=== PATIENT | male | born 1965 | race Caucasian/White ===

== ENCOUNTER 2016-08-08 16:53 | Emergency (ER) | payer BC ==
[~2016-08-08] VITALS: Wt 99.8 kg
[~2016-08-08 16:53] MED LIST: ALBUTEROL0.09 MG/A2 IH; LEVOFLOXACIN500 MG PO; LOMOTIL 0.025 M1 TA1 PO
[2016-08-08] MEDS ORDERED: PREDNISONE10 MG PO (18:39)
[2016-08-08] MEDS ORDERED: PROAIR HFA8.5 GM INH (18:39)
== END 2016-08-08 18:44 | disposition home or self-care (01) ==
LOC: ED 16:53
DX: J20.9 Acute bronchitis, unspecified (principal)

== ENCOUNTER → 2018-07-05 | Outpatient (CLI) | payer BC ==
[~2018-07-05] MED LIST changes: +PREDNISONE10 MG PO; +PROAIR HFA8.5 GM INH
== END | disposition home or self-care (01) ==
LOC: RAD 17:05
DX: R05 Cough (principal); R09.89 Other specified symptoms and signs involving the circulatory and respiratory systems; J45.40 Moderate persistent asthma, uncomplicated; F17.210 Nicotine dependence, cigarettes, uncomplicated

== ENCOUNTER 2018-07-22 22:57 | Inpatient (IN) | payer BC ==
[~2018-07-22] VITALS: Ht 177.8 cm; Wt 105.9 kg
--- NOTE | ~2018-07-22 | EKG ---
[place], [place] ELECTROCARDIOGRAM REPORT NAME: LINDA GOULD UNIT #: [id number] ROOM: 401 DOCTOR: SHORTY DRAFT REPORT BIRTHDATE: [birth year] [facility] Test Date: 2018-07-22 Test Time: 23:42:22 Pat Name: LINDA GOULD Department: Room: 401 Gender: M Machine Design Engineer: Leidy Westbrook : 1965 Requested By: KAELA HERNANDEZ Order Number: [id number] Reading MD: Ángel Aguilar MD Measurements Intervals [place] Rate: 81 P: 50 GA: 225 QRS: 22 QRSD: 95 T: 43 QT: 393 QTc: 457 Interpretive Statements Sinus rhythm Prolonged GA interval ST elev, probable normal early repol pattern Electronically Signed On 07-27-2018 9:40:12 PDT by Ángel Aguilar MD CM:EKGRPT:ELECTROCARDIOGRAM REPORT [id number] KAELA ORO DRAFT REPORT KAELA HOWELL
[2018-07-22 23:03] VITALS: BP 103/66
--- NOTE | 2018-07-22 23:18 | NUR ---
PATIENT REFUSES APPLICATION OF AGRICULTURAL SPECIALIST
--- NOTE | 2018-07-22 23:25 | NUR ---
PATIENT REFUSES APPLICATION OF CERVICAL COLLAR
--- NOTE | 2018-07-22 23:54 | NUR ---
PATIENT TO CT.
[2018-07-23 00:01] LABS: ACT PARTIAL THROMBO TIME 19.9 SECONDS (20.8-31.5); INTERNATIONAL NORM RATIO 0.9 (2.0-3.5)
[2018-07-23 00:10] LABS: BASO % 0.7 % (0.0-1.0); EOS # 0.2 10*3/uL (0.0-0.4); EOS % 3.2 % (1.0-4.0); HEMATOCRIT 44.5 % (42.0-52.0); HEMOGLOBIN 14.5 g/dl (14.0-18.0); LYMPH # 1.7 10*3/uL (1.3-4.4); LYMPH % 30.6 % (27.0-41.0); MEAN CELL VOLUME 92.3 fl (80.0-94.0); MEAN CORPUSCULAR HGB 30.1 pg (27.0-31.0); MEAN CORPUSCULAR HGB CONC 32.6 g/dl (33.0-37.0); MONO # 0.5 10*3/uL (0.1-1.0); NEUT # 3.2 10*3/uL (2.3-7.9); NEUT % 57.1 % (47.0-73.0); PLATELET COUNT AUTOMATED 231 10*3/uL (130-400); RED BLOOD COUNT 4.82 10*6/uL (4.50-5.90); RED CELL DISTRI WIDTH 12.9 % (0-14.5); WHITE BLOOD COUNT 5.7 10*3/uL (4.8-10.8)
[2018-07-23 00:14] LABS: ALBUMIN 3.9 gm/dl (3.1-4.5); ALKALINE PHOSPHATASE 62 U/L (45-117); BUN 12 mg/dl (7-24); CHLORIDE 107 mmol/L (98-107); CREATININE 0.93 mg/dL (0.70-1.30); LIPASE 229 U/L (73-393); POTASSIUM 3.8 mmol/L (3.5-5.1); SGOT/AST 46 IU/L (3-35); SGPT/ALT 88 U/L (12-78); SODIUM 138 mmol/L (136-145); TOTAL PROTEIN 7.5 gm/dL (6.4-8.2)
[2018-07-23 00:15] LABS: TROPONIN I < 0.015 ng/ml (<0.045)
[2018-07-23 00:28] LABS: ACETAMINOPHEN (TYLENOL) < 5.0 ug/ml (10-30)
[2018-07-23 01:42] VITALS: BP 110/68
[2018-07-23 02:00] VITALS: BP 104/63
--- NOTE | 2018-07-23 02:00 | NUR ---
A 53, admitted to , under the services of ANGELA Brown DO with a diagnosis of ALCOHOL POISONING. Chief complaint is ALCOHOL INTOXICATION. Patient arrived via ambulance from ER. Monitor applied. Initial assessment completed. Vital signs taken and recorded. ANGELA BROWN DO notified of admission to the unit. Orders received. See assessment for past medical history, medications and allergies. Patient and/or family oriented to unit. [facility]. Clothing/patient valuable form completed. BEAU CHILEL
[2018-07-23 02:54] LABS: URINE AMPHETAMINES < 1000 (1000ng/ml); URINE BARBITURATES < 200 (200ng/ml); URINE BENZODIAZEPINES < 200 (200ng/ml); URINE CANNABINOIDS (THC) < 50 (50ng/ml); URINE COCAINE < 300 (300ng/ml); URINE METHADONE < 300 (300ng/ml); URINE OPIATES < 300 (300ng/ml)
[2018-07-23 03:00] LABS: URINE PHENCYCLIDINE < 25 (25ng/ml)
--- NOTE | 2018-07-23 04:08 | NUR ---
PT RESTING QUIETLY IN BED AT THIS TIME.
--- NOTE | 2018-07-23 08:40 | NUR ---
The patient, LINDA GOULD, 53, , [id number], [id number], presented to Emergency Department at 2314. The patient's Chief Complaint was . The patient subsequently left "Against Medical Advice" at . Treatment completed included . Possible complications and consequences of not following medical advice were clearly explained to the patient by , and RN. THIS WAS DOCUMENTED IN ERROR THIS IS AN ERROR. PATIENT DID NOT LEAVE AMA Assessment of the patient's competence, for making the decision to refuse completion of previously requested exam and treatment, includes . Attempts made to get involved in persuading the patient to accept, , the physician's, recommendations. Discussion included . The patient's response was . Family/friends who witnessed the discussion includes . Signatures requested. The patient sign the chart; this was witnessed by RN. The patient's reason for departing, prior to completion of treatment was . The patients disposition is , to the care of other. Arrangements have been made for the ED staff to "Call Back" the patient the following day, to inquire about the patient's medical status and encourage LINDA GOULD, to seek medical attention, if this has not been completed. HELENA MENENDEZ.
--- NOTE | 2018-07-23 08:53 | NUR ---
Discharge instructions reviewed with patient/family. Patient receptive and verbalizes understanding. Follow-up care arranged. Written instructions given to patient/family. Patient ambulated from unit with all personal belongings accounted for and with his spouse. HELENA MENENDEZ
== END 2018-07-23 08:53 | disposition home or self-care (01) | DRG 917 ==
LOC: ED 22:57 → EDHOLD 07-23 00:43 → 4E 07-23 00:54
PROVIDERS: Physician Assistant; ADMIT Internal Medicine
DX: T51.91XA Toxic effect of unspecified alcohol, accidental (unintentional), initial encounter (principal); G93.41 Metabolic encephalopathy; K57.80 Diverticulitis of intestine, part unspecified, with perforation and abscess without bleeding; F10.129 Alcohol abuse with intoxication, unspecified; R73.9 Hyperglycemia, unspecified; R74.0 Nonspecific elevation of levels of transaminase and lactic acid dehydrogenase [LDH]; J44.9 Chronic obstructive pulmonary disease, unspecified; Z71.6 Tobacco abuse counseling; Z91.81 History of falling; Z82.3 Family history of stroke; Z80.3 Family history of malignant neoplasm of breast; Z87.891 Personal history of nicotine dependence; Z79.899 Other long term (current) drug therapy; Z82.49 Family history of ischemic heart disease and other diseases of the circulatory system; Y92.89 Other specified places as the place of occurrence of the external cause

== ENCOUNTER → 2018-11-08 | Outpatient (CLI) | payer BC ==
--- NOTE | ~2018-11-08 | PF ---
[place], [place] PULMONARY FUNCTION TEST [id number] UN[facility] #: [id number] ROOM: DOCTOR: TAVO MCLEOD MD,MIGEL BIRTHDATE: [birth year] DOS: 11/08/2018 PULMONARY FUNCTION TEST ORDERED BY: The test was ordered by Kylie Escobedo. HISTORY: The patient recorded as 53-year-old male, height of 69 inches, weight of 230 pounds, BMI of 34. The patient's study was done for assessment of symptoms of productive cough, shortness of breath with exertion and frequent wheezing. Tobacco use reported 30 pack history of tobacco use as 1 pack of cigarettes per day. Tobacco cessation reported as 7 years ago. SPIROMETRY: The patient's FVC of 3.51 liters at 74% predicted value, FEV1 2.60 liters, 69% predicted value with partial improvement noted post-bronchodilator, but did not meet the ATS criteria of significant improvement postbronchodilator study. Flow volume loop was suggestive of mild obstructive airway pattern. The ratio of FEV1/FVC recorded 74%. The lung volume, thoracic gas volume recorded at 88%, residual volume 137%, total lung capacity 94%. RV/TLC ratio 145%. The patient's lung diffusion recorded 88%. The patient's airway resistance and passive conductance was normal. FINAL IMPRESSION: Evidence of mild obstructive lung disease cannot be completely excluded, which are noted as nonspecific possibly bronchial asthma could be considered. Clinical correlation would be advised. MIGEL VO MD CM:PFREPORT:PULMONARY FUNCTION TEST [id number] MIGEL MCLEOD MD
== END | disposition home or self-care (01) ==
LOC: CP 06:57
DX: J45.40 Moderate persistent asthma, uncomplicated (principal); F17.200 Nicotine dependence, unspecified, uncomplicated

== ENCOUNTER → 2019-03-27 | Day surgery (SDC) | payer BC ==
[~2019-03-27] VITALS: Ht 177.8 cm; Wt 104.3 kg
[~2019-03-27] MED LIST changes: +MONTELUKAST SOD10 MG PO; +SYMB160 INH
--- NOTE | ~2019-03-27 | O ---
[place], [place] OPERATIVE NOTE NAME: LINDA GOULD UNIT #: [id number] ROOM: DOCTOR: GRANT LEWIS MD BIRTHDATE: [birth year] DOS: 03/27/2019 INDICATIONS: A 53-year-old patient who has presented status post colostomy reversal, history of diverticulitis. ALLERGIES: No known medication. FAMILY HISTORY: Noncontributory. PAST SURGICAL HISTORY: Colostomy reversal. PAST MEDICAL HISTORY: COPD. SOCIAL HISTORY: Social alcohol consumer, stopped smoking 30 years ago. PROCEDURE: Today's procedure part of investigation is colonoscopy plus polypectomies. PREMEDICATION: Propofol. SCOPE: Olympus forward-viewing colonoscope 10L video. REPORT: After putting the patient in left lateral position and application of lubricant to the scope, scope was introduced. After direct visualization, advanced through the length of colon without difficulty. Anastomotic site at sigmoid colon about was noticed, photographed. Rare diverticulosis seen. Three polypoid lesion in the ascending colon noticed. Piecemeal polypectomy on sessile polyps were done. Base of the cecum explored. Appendiceal site identified, ileocecal valve was defined. No other acute pathology seen. The patient extubated, tolerated the procedure well. IMPRESSION: Status post colostomy reversal, colonoscopy in 3 sessile polypoid lesion, left colon, status post piecemeal polypectomies. PLAN: High fiber fruit diet. ACTIVITY: Ad celestino. FOLLOWUP: Routinely with you in office, p.r.n. visit with us in GI Clinic in 2 weeks. I thank you very much indeed for your kind referral. Photographic series have been attached to chart for future reference. [place], [place] OPERATIVE NOTE NAME: LINDA GOULD UNIT #: [id number] ROOM: DOCTOR: GRANT LEWIS MD BIRTHDATE: [birth year] GRANT LEWIS MD CM:OPRECORD:OPERATIVE NOTE 1015 [id number] GRANT LEWIS MD 03/27/19 1146 interface
[2019-03-27 09:17] VITALS: BP 131/80
[2019-03-27 10:10] VITALS: BP 93/59
[2019-03-27 10:25] VITALS: BP 124/80
[2019-03-27 10:40] VITALS: BP 114/81
== END | disposition home or self-care (01) ==
LOC: SDC 03-25 12:30
DX: Z12.11 Encounter for screening for malignant neoplasm of colon (principal); D12.2 Benign neoplasm of ascending colon; J44.9 Chronic obstructive pulmonary disease, unspecified; K57.30 Diverticulosis of large intestine without perforation or abscess without bleeding; E66.01 Morbid (severe) obesity due to excess calories; Z68.33 Body mass index [BMI] 33.0-33.9, adult; Z98.890 Other specified postprocedural states; Z79.899 Other long term (current) drug therapy; Z87.891 Personal history of nicotine dependence; Z80.8 Family history of malignant neoplasm of other organs or systems; Z82.49 Family history of ischemic heart disease and other diseases of the circulatory system

== ENCOUNTER → 2020-04-04 | Outpatient (CLI) | payer BC | END | disposition home or self-care (01) | LOC: COVID19 14:17 | PROVIDERS: ATTEND Internal Medicine | DX: U07.1 COVID-19 (principal) ==

== ENCOUNTER → 2021-11-09 | Outpatient (CLI) | payer BC | END | disposition home or self-care (01) | LOC: LAB 11:31 | PROVIDERS: ATTEND Family Medicine | DX: E11.9 Type 2 diabetes mellitus without complications (principal) ==

== ENCOUNTER 2022-02-26 23:52 | Inpatient (IN) | payer BC ==
[~2022-02-26] VITALS: Ht 175.2 cm; Wt 98.7 kg
[2022-02-26 23:59] VITALS: BP 111/68
[2022-02-27] VITALS (8 sets, daily range): BP systolic 92–148; BP diastolic 57–81
[2022-02-27 01:35] LABS: BASO % 0.2 % (0.0-1.0); EOS % 0.2 % (1.0-4.0); HEMATOCRIT 45.1 % (42.0-52.0); LYMPH # 1.3 10*3/uL (1.3-4.4); LYMPH % 8.1 % (27.0-41.0); MEAN CELL VOLUME 91.9 fl (80.0-94.0); MEAN CORPUSCULAR HGB 30.5 pg (27.0-31.0); MEAN CORPUSCULAR HGB CONC 33.3 g/dl (33.0-37.0); MEAN PLATELET VOLUME 10.6 fl (9.6-12.3); MONO # 0.7 10*3/uL (0.1-1.0); MONO % 4.7 % (3.0-9.0); NEUT # 13.5 10*3/uL (2.3-7.9); NEUT % 86.4 % (47.0-73.0); PLATELET COUNT AUTOMATED 268 10*3/uL (130-400); RED BLOOD COUNT 4.91 10*6/uL (4.50-5.90); RED CELL DISTRI WIDTH 12.5 % (0-14.5); WHITE BLOOD COUNT 15.6 10*3/uL (4.8-10.8)
[2022-02-27 01:52] LABS: ALKALINE PHOSPHATASE 59 U/L (45-117); BUN 14 mg/dl (7-24); CHLORIDE 105 mmol/L (98-107); CREATININE 1.06 mg/dL (0.70-1.30); POTASSIUM 4.2 mmol/L (3.5-5.1); SGOT/AST 26 IU/L (3-35); SGPT/ALT 33 U/L (12-78); SODIUM 137 mmol/L (136-145); TOTAL PROTEIN 7.7 gm/dL (6.4-8.2)
[2022-02-27] MEDS ORDERED: METFORMIN HYDR500 MG PO (11:06)
[2022-02-27] MEDS ORDERED: SINGULAIR10 M1 PO ×2 (11:06→11:09)
[2022-02-27] MEDS ORDERED: ADV 100/50 INH (11:08)
[2022-02-27] MEDS ORDERED: LOSARTAN POTASS25 M1 PO (11:08)
[2022-02-27] MEDS ORDERED: NORVASC5 MG PO (11:09)
[2022-02-28] VITALS: BP 127/69
[2022-02-28 06:47] LABS: BASO % 0.4 % (0.0-1.0); EOS # 0.1 10*3/uL (0.0-0.4); EOS % 1.9 % (1.0-4.0); HEMATOCRIT 40.7 % (42.0-52.0); LYMPH # 1.2 10*3/uL (1.3-4.4); LYMPH % 17.9 % (27.0-41.0); MEAN CELL VOLUME 91.1 fl (80.0-94.0); MEAN CORPUSCULAR HGB 30.2 pg (27.0-31.0); MEAN CORPUSCULAR HGB CONC 33.2 g/dl (33.0-37.0); MEAN PLATELET VOLUME 11.3 fl (9.6-12.3); MONO # 0.8 10*3/uL (0.1-1.0); MONO % 12.4 % (3.0-9.0); NEUT # 4.5 10*3/uL (2.3-7.9); NEUT % 67.3 % (47.0-73.0); PLATELET COUNT AUTOMATED 226 10*3/uL (130-400); RED BLOOD COUNT 4.47 10*6/uL (4.50-5.90); RED CELL DISTRI WIDTH 12.9 % (0-14.5); WHITE BLOOD COUNT 6.8 10*3/uL (4.8-10.8)
[2022-02-28 06:50] LABS: ALKALINE PHOSPHATASE 51 U/L (45-117); BUN 15 mg/dl (7-24); CHLORIDE 108 mmol/L (98-107); CHOLESTEROL 186 mg/dL (<200); CREATININE 0.82 mg/dL (0.70-1.30); LDL CHOLESTEROL 111 mg/dL (9-159); SGOT/AST 24 IU/L (3-35); SGPT/ALT 27 U/L (12-78); SODIUM 140 mmol/L (136-145); TOTAL PROTEIN 6.7 gm/dL (6.4-8.2); TRIGLYCERIDES 96 mg/dl (<150)
[2022-02-28 06:51] LABS: FREE T4 0.85 ng/dl (0.76-1.46)
[2022-02-28 06:53] LABS: ACT PARTIAL THROMBO TIME 26.5 SECONDS (20.0-32.1)
[2022-02-28 08:00] VITALS: BP 139/73
[2022-02-28 12:00] VITALS: BP 132/70
[2022-02-28] MEDS ORDERED: HYDROCODONE-AC1 EAC1 PO (13:50)
== END 2022-02-28 15:30 | disposition home or self-care (01) | DRG 494 ==
LOC: ED 23:52 → EDHOLD 02-27 05:30 → 4E 02-27 05:30 → EDHOLD 02-27 06:42 → 4E 02-27 06:56
PROVIDERS: Emergency Medicine; Internal Medicine; ADMIT Emergency Medicine; ATTEND Emergency Medicine
PROC: 0QSJ0ZZ Reposition Right Fibula, Open Approach (ICD-10-PCS; principal; 2022-02-27)
PROC: 2W3LX1Z Immobilization of Right Lower Extremity using Splint (ICD-10-PCS; 2022-02-27)
DX: S82.401A Unspecified fracture of shaft of right fibula, initial encounter for closed fracture (principal); S93.431A Sprain of tibiofibular ligament of right ankle, initial encounter; F10.929 Alcohol use, unspecified with intoxication, unspecified; I10 Essential (primary) hypertension; E11.65 Type 2 diabetes mellitus with hyperglycemia; D72.829 Elevated white blood cell count, unspecified; S93.421A Sprain of deltoid ligament of right ankle, initial encounter; J44.9 Chronic obstructive pulmonary disease, unspecified; Z93.3 Colostomy status; Z82.3 Family history of stroke; Z80.3 Family history of malignant neoplasm of breast; W18.39XA Other fall on same level, initial encounter; Y93.89 Activity, other specified; Y92.89 Other specified places as the place of occurrence of the external cause; Y99.8 Other external cause status

== ENCOUNTER → 2022-03-08 | Day surgery (SDC) | payer BC ==
[2022-03-03 12:39] VITALS: BP 134/85
[2022-03-03 13:48] LABS: BUN 16 mg/dl (7-24); CHLORIDE 108 mmol/L (98-107); CREATININE 0.83 mg/dL (0.70-1.30); POTASSIUM 4.1 mmol/L (3.5-5.1); SODIUM 140 mmol/L (136-145)
[~2022-03-08] VITALS: Ht 175.2 cm; Wt 97.5 kg
[~2022-03-08] MED LIST changes: +ADV 100/50 INH; +HYDROCODONE-AC1 EAC1 PO; +LOSARTAN POTASS25 M1 PO; +METFORMIN HYDR500 MG PO; +NORVASC5 MG PO; +SINGULAIR10 M1 PO
[2022-03-08 06:46] VITALS: BP 134/82
[2022-03-08 09:30] VITALS: BP 129/71
[2022-03-08 09:45] VITALS: BP 134/81
[2022-03-08 10:00] VITALS: BP 122/74
[2022-03-08 10:15] VITALS: BP 143/88
[2022-03-08 10:30] VITALS: BP 142/85
== END | disposition home or self-care (01) ==
LOC: SDC 03-03 12:30
PROVIDERS: ATTEND Orthopaedic Surgery
DX: S82.831A Other fracture of upper and lower end of right fibula, initial encounter for closed fracture (principal); S93.432A Sprain of tibiofibular ligament of left ankle, initial encounter; I10 Essential (primary) hypertension; E11.9 Type 2 diabetes mellitus without complications; J43.9 Emphysema, unspecified; W01.0XXA Fall on same level from slipping, tripping and stumbling without subsequent striking against object, initial encounter; Y93.89 Activity, other specified; Y92.89 Other specified places as the place of occurrence of the external cause; Y99.8 Other external cause status

== ENCOUNTER → 2022-03-18 | Outpatient (CLI) | payer BC | LOC: ORTHO 01:05 | PROVIDERS: ATTEND Orthopaedic Surgery | DX: S82.451D Displaced comminuted fracture of shaft of right fibula, subsequent encounter for closed fracture with routine healing (principal); M79.89 Other specified soft tissue disorders; X58.XXXD Exposure to other specified factors, subsequent encounter ==

== ENCOUNTER → 2022-04-18 | Outpatient (CLI) | payer BC | END | disposition home or self-care (01) | LOC: ORTHO 01:54 | PROVIDERS: ATTEND Orthopaedic Surgery | DX: S82.451D Displaced comminuted fracture of shaft of right fibula, subsequent encounter for closed fracture with routine healing (principal); X58.XXXD Exposure to other specified factors, subsequent encounter ==

== ENCOUNTER → 2022-05-30 | Outpatient (CLI) | payer BC | END | disposition home or self-care (01) | LOC: ORTHO 01:34 | PROVIDERS: ATTEND Orthopaedic Surgery | DX: S82.451D Displaced comminuted fracture of shaft of right fibula, subsequent encounter for closed fracture with routine healing (principal); X58.XXXD Exposure to other specified factors, subsequent encounter ==

== ENCOUNTER → 2022-08-29 | Outpatient (CLI) | payer BC | END | disposition home or self-care (01) | LOC: ORTHO 01:34 | PROVIDERS: ATTEND Orthopaedic Surgery | DX: S82.451D Displaced comminuted fracture of shaft of right fibula, subsequent encounter for closed fracture with routine healing (principal); X58.XXXD Exposure to other specified factors, subsequent encounter ==

== ENCOUNTER → 2022-10-13 | Outpatient (CLI) | payer BC ==
[2022-10-13 10:08] LABS: BASO # 0.1 10*3/uL (0.0-0.1); BASO % 1.1 % (0.0-1.0); EOS # 0.1 10*3/uL (0.0-0.4); EOS % 2.9 % (1.0-4.0); HEMATOCRIT 45.3 % (42.0-52.0); MEAN CELL VOLUME 89.3 fl (80.0-94.0); MEAN CORPUSCULAR HGB 29.4 pg (27.0-31.0); MEAN CORPUSCULAR HGB CONC 32.9 g/dl (33.0-37.0); MEAN PLATELET VOLUME 10.7 fl (9.6-12.3); MONO # 0.4 10*3/uL (0.1-1.0); MONO % 8.2 % (3.0-9.0); NEUT # 2.9 10*3/uL (2.3-7.9); NEUT % 65.3 % (47.0-73.0); PLATELET COUNT AUTOMATED 266 10*3/uL (130-400); RED BLOOD COUNT 5.07 10*6/uL (4.50-5.90); RED CELL DISTRI WIDTH 13.2 % (0-14.5); WHITE BLOOD COUNT 4.4 10*3/uL (4.8-10.8)
[2022-10-13 10:29] LABS: ALKALINE PHOSPHATASE 75 U/L (46-116); BUN 12 mg/dl (9-23); CHLORIDE 104 mmol/L (98-107); CHOLESTEROL 220 mg/dL (<200); GAMMA GLUTAMYL TRANSPEPTIDASE 26 U/L (0-73); LDL CHOLESTEROL 138 mg/dL (9-159); POTASSIUM 3.9 mmol/L (3.4-5.1); SGPT/ALT 25 U/L (10-49); T3 UPTAKE 24.7 % (22.4-36.7); THYROID STIM HORMONE (HS) 3.868 uIU/ml (0.550-4.780); TOTAL PROTEIN 7.5 gm/dL (6.0-8.0); TRIGLYCERIDES 139 mg/dl (<150)
[2022-10-13 10:46] LABS: VITAMIN D, 25-HYDROXY 32.3 ng/mL (30-100)
== END | disposition home or self-care (01) ==
LOC: LAB 09:20
PROVIDERS: ATTEND Family Medicine
DX: E78.5 Hyperlipidemia, unspecified (principal); E55.9 Vitamin D deficiency, unspecified; R79.89 Other specified abnormal findings of blood chemistry; R53.83 Other fatigue; R74.8 Abnormal levels of other serum enzymes

== ENCOUNTER → 2023-06-20 | Outpatient (CLI) | payer BC ==
[2023-06-20 15:51] LABS: BASO % 0.6 % (0.0-1.0); BILIRUBIN Negative (Negative); BLOOD Negative (Negative); CLARITY Clear (Clear); COLOR Yellow (Yellow); EOS # 0.1 10*3/uL (0.0-0.4); EOS % 2.1 % (1.0-4.0); GLUCOSE Negative (Negative); HEMATOCRIT 42.5 % (42.0-52.0); KETONE Trace (Negative); LEUKO ESTERASE Negative (Negative); LYMPH # 1.6 10*3/uL (1.3-4.4); LYMPH % 30.5 % (27.0-41.0); MEAN CELL VOLUME 90.4 fl (80.0-94.0); MEAN CORPUSCULAR HGB 28.9 pg (27.0-31.0); MEAN PLATELET VOLUME 10.8 fl (9.6-12.3); MONO # 0.4 10*3/uL (0.1-1.0); MONO % 8.4 % (3.0-9.0); NEUT # 3.1 10*3/uL (2.3-7.9); NEUT % 58.2 % (47.0-73.0); NITRITE Negative (Negative); PH 5.5 (4.5-8.0); PLATELET COUNT AUTOMATED 247 10*3/uL (130-400); RED CELL DISTRI WIDTH 12.8 % (0-14.5); RETICULOCYTE % 1.35 % (0.50-2.50); SPECIFIC GRAVITY >= 1.030 (1.001-1.030); WHITE BLOOD COUNT 5.3 10*3/uL (4.8-10.8)
[2023-06-20 16:01] LABS: FINE GRANULAR CAST 0-2; MUCOUS 2+; RBC 0-2 rbc/hpf (0-2); WBC 0-2 wbc/hpf (0-5)
[2023-06-20 16:22] LABS: ALKALINE PHOSPHATASE 62 U/L (46-116); BUN 11 mg/dl (9-23); CHLORIDE 107 mmol/L (98-107); CHOLESTEROL 145 mg/dL (<200); GAMMA GLUTAMYL TRANSPEPTIDASE 21 U/L (0-73); LDL CHOLESTEROL 78 mg/dL (9-159); POTASSIUM 4.1 mmol/L (3.4-5.1); SGPT/ALT 23 U/L (5-49); THYROXINE (T4) TOTAL 6.3 ug/dl (4.5-10.9); TOTAL PROTEIN 7.3 gm/dL (6.0-8.0); TRIGLYCERIDES 66 mg/dl (<150)
[2023-06-20 16:23] LABS: VITAMIN D, 25-HYDROXY 40.4 ng/mL (30-100)
== END | disposition home or self-care (01) ==
LOC: LAB 15:29
PROVIDERS: ATTEND Family Medicine
DX: E55.9 Vitamin D deficiency, unspecified (principal); R79.89 Other specified abnormal findings of blood chemistry; R53.83 Other fatigue; E78.5 Hyperlipidemia, unspecified; R74.8 Abnormal levels of other serum enzymes; E11.9 Type 2 diabetes mellitus without complications

== ENCOUNTER → 2023-09-18 | Outpatient (CLI) | payer BC ==
[2023-09-18 16:17] LABS: BASO % 0.5 % (0.0-1.0); EOS # 0.2 10*3/uL (0.0-0.4); EOS % 3.4 % (1.0-4.0); HEMATOCRIT 41.9 % (42.0-52.0); LYMPH # 1.7 10*3/uL (1.3-4.4); LYMPH % 30.3 % (27.0-41.0); MEAN CELL VOLUME 91.7 fl (80.0-94.0); MEAN CORPUSCULAR HGB 30.2 pg (27.0-31.0); MEAN CORPUSCULAR HGB CONC 32.9 g/dl (33.0-37.0); MEAN PLATELET VOLUME 10.7 fl (9.6-12.3); MONO # 0.5 10*3/uL (0.1-1.0); MONO % 8.2 % (3.0-9.0); NEUT # 3.2 10*3/uL (2.3-7.9); NEUT % 57.4 % (47.0-73.0); PLATELET COUNT AUTOMATED 253 10*3/uL (130-400); RED BLOOD COUNT 4.57 10*6/uL (4.50-5.90); RED CELL DISTRI WIDTH 12.7 % (0-14.5); RETICULOCYTE % 1.35 % (0.50-2.50); WHITE BLOOD COUNT 5.5 10*3/uL (4.8-10.8)
[2023-09-18 16:18] LABS: BILIRUBIN Negative (Negative); BLOOD Negative (Negative); CLARITY Clear (Clear); COLOR Yellow (Yellow); GLUCOSE Negative (Negative); KETONE Negative (Negative); LEUKO ESTERASE Negative (Negative); NITRITE Negative (Negative); PH 5.5 (4.5-8.0); SPECIFIC GRAVITY <= 1.005 (1.001-1.030); UROBILINOGEN 0.2 E.U./dl (0.0-1.0)
[2023-09-18 16:34] LABS: EPITHELIAL CELLS 0-2; WBC 0-2 wbc/hpf (0-5)
[2023-09-18 16:52] LABS: ALKALINE PHOSPHATASE 68 U/L (46-116); BUN 9 mg/dl (9-23); CHLORIDE 103 mmol/L (98-107); CHOLESTEROL 154 mg/dL (<200); GAMMA GLUTAMYL TRANSPEPTIDASE 29 U/L (0-73); LDL CHOLESTEROL 83 mg/dL (9-159); POTASSIUM 3.7 mmol/L (3.4-5.1); SGPT/ALT 22 U/L (5-49); T3 UPTAKE 29.9 % (22.4-36.7); TOTAL PROTEIN 7.6 gm/dL (6.0-8.0); TRIGLYCERIDES 75 mg/dl (<150)
== END ==
LOC: LAB 15:18
PROVIDERS: ATTEND Family Medicine
DX: E78.5 Hyperlipidemia, unspecified (principal); R79.89 Other specified abnormal findings of blood chemistry; R53.83 Other fatigue; R74.8 Abnormal levels of other serum enzymes

== ENCOUNTER → 2024-06-10 | Outpatient (CLI) | payer BC ==
[2024-06-10 16:10] LABS: BASO % 0.6 % (0.0-1.0); EOS # 0.1 10*3/uL (0.0-0.4); EOS % 0.8 % (1.0-4.0); HEMATOCRIT 43.9 % (42.0-52.0); MEAN CORPUSCULAR HGB 29.6 pg (27.0-31.0); MEAN CORPUSCULAR HGB CONC 33.3 g/dl (33.0-37.0); MEAN PLATELET VOLUME 10.5 fl (9.6-12.3); MONO # 0.6 10*3/uL (0.1-1.0); NEUT # 4.3 10*3/uL (2.3-7.9); NEUT % 65.8 % (47.0-73.0); PLATELET COUNT AUTOMATED 288 10*3/uL (130-400); RED BLOOD COUNT 4.93 10*6/uL (4.50-5.90); RED CELL DISTRI WIDTH 12.5 % (0-14.5); RETICULOCYTE % 1.33 % (0.50-2.50); WHITE BLOOD COUNT 6.5 10*3/uL (4.8-10.8)
[2024-06-10 16:17] LABS: BILIRUBIN Negative (Negative); BLOOD Negative (Negative); CLARITY Clear (Clear); COLOR Yellow (Yellow); GLUCOSE Negative (Negative); KETONE 1+ (Negative); LEUKO ESTERASE Negative (Negative); NITRITE Negative (Negative); SPECIFIC GRAVITY >= 1.030 (1.001-1.030)
[2024-06-10 16:35] LABS: BACTERIA TRACE; MUCOUS 3+
[2024-06-10 16:48] LABS: VITAMIN D, 25-HYDROXY 35.7 ng/mL (30-100)
[2024-06-10 17:00] LABS: ALKALINE PHOSPHATASE 64 U/L (46-116); BUN 15 mg/dl (9-23); CHLORIDE 104 mmol/L (98-107); CHOLESTEROL 164 mg/dL (<200); GAMMA GLUTAMYL TRANSPEPTIDASE 29 U/L (0-73); LDL CHOLESTEROL 92 mg/dL (9-159); POTASSIUM 3.7 mmol/L (3.4-5.1); SGPT/ALT 18 U/L (5-49); TOTAL PROTEIN 7.9 gm/dL (6.0-8.0); TRIGLYCERIDES 117 mg/dl (<150)
== END | disposition home or self-care (01) ==
LOC: LAB 15:47
PROVIDERS: ATTEND Family Medicine
DX: R53.83 Other fatigue (principal); R79.89 Other specified abnormal findings of blood chemistry; E78.5 Hyperlipidemia, unspecified; R74.8 Abnormal levels of other serum enzymes; E55.9 Vitamin D deficiency, unspecified

== ENCOUNTER → 2024-12-10 | Outpatient (CLI) | payer BC ==
[2024-12-10 10:41] LABS: BASO # 0.1 10*3/uL (0.0-0.1); BASO % 0.8 % (0.0-1.0); BILIRUBIN Negative (Negative); BLOOD Negative (Negative); CLARITY Clear (Clear); COLOR Yellow (Yellow); EOS # 0.3 10*3/uL (0.0-0.4); EOS % 4.1 % (1.0-4.0); KETONE Negative (Negative); LEUKO ESTERASE Negative (Negative); MEAN CELL VOLUME 89.8 fl (80.0-94.0); MEAN CORPUSCULAR HGB 29.4 pg (27.0-31.0); MEAN PLATELET VOLUME 10.6 fl (9.6-12.3); MONO # 0.6 10*3/uL (0.1-1.0); MONO % 8.7 % (3.0-9.0); NEUT # 4.0 10*3/uL (2.3-7.9); NEUT % 62.9 % (47.0-73.0); NITRITE Negative (Negative); NUCLEATED RED BLOOD CELL 0.0 % (0.0-0.0); NUCLEATED RED BLOOD CELL 0.0 10*3/uL (0.0-0.0); PH 7.0 (4.5-8.0); PLATELET COUNT AUTOMATED 230 10*3/uL (130-400); RED CELL DISTRI WIDTH 12.8 % (0-14.5); RETICULOCYTE % 1.26 % (0.50-2.50); SPECIFIC GRAVITY 1.015 (1.001-1.030); UROBILINOGEN 1.0 E.U./dl (0.0-1.0)
[2024-12-10 11:03] LABS: EPITHELIAL CELLS 0-2; RBC 0-2 rbc/hpf (0-2)
[2024-12-10 11:24] LABS: BUN 12 mg/dl (9-23); GAMMA GLUTAMYL TRANSFERASE 27 U/L (0-73); LDL CHOLESTEROL 93 mg/dL (9-159); SGPT/ALT 20 U/L (5-49); T3 UPTAKE 32.3 % (22.4-36.7); THYROXINE (T4) TOTAL 5.9 ug/dl (4.5-10.9)
== END | disposition home or self-care (01) ==
LOC: LAB 10:13
PROVIDERS: ATTEND Family Medicine
DX: E78.5 Hyperlipidemia, unspecified (principal); E55.9 Vitamin D deficiency, unspecified; R79.89 Other specified abnormal findings of blood chemistry; R53.83 Other fatigue